=== PATIENT | female | born 1935 | race Caucasian/White ===

== ENCOUNTER → 2018-08-31 | Outpatient (CLI) | payer OTHER ==
[~2018-08-31] MED LIST: ARICEPT 5 MG TAB5 MG PO; AZITHROMYCIN 2250 MG PO; CHOLESTEROL MED; CRESTOR10 MG PO; HYDROCODON-ACE1 EAC5 PO; LEVOTHYROXINE0.2 M1 PO; LEVOXYL75 MCG PO; LYRICA 50 MG50 MG PO; MEDROLDOSEPACK PO; NAMENDA 10 MG T10 MG PO; NEOMYCIN-POLY-7.5 ML NASAL; NEURONTIN 300M300 M2 PO; NEURONTIN PO; PHENERGAN 25 MG25 M1 PO; PRILOSEC40 MG PO; REQUIP 1 MG TABL1 M1; ROBINUL1 MG PO; TUSSIONEX PENN473 ML PO; ZPAK PO
== END ==
LOC: M.RAD 15:19
DX: S52.611A Displaced fracture of right ulna styloid process, initial encounter for closed fracture (principal); S52.591A Other fractures of lower end of right radius, initial encounter for closed fracture; M19.031 Primary osteoarthritis, right wrist; M25.731 Osteophyte, right wrist; W19.XXXA Unspecified fall, initial encounter; Y93.89 Activity, other specified; Y92.89 Other specified places as the place of occurrence of the external cause; Y99.8 Other external cause status